=== PATIENT | male | born 1960 | race Native Hawaiian/Other Pacific Islander ===

== ENCOUNTER 2018-12-11 23:01 | Emergency (ER) | payer OTHER ==
[~2018-12-11] VITALS: Ht 188 cm; Wt 144.7 kg
[~2018-12-11 23:01] MED LIST: ASPIR 8181 MG PO; METFORMIN500 M1 PO; ZES10 PO; [UNRECOGNIZED DRUG - OTHER] PR
[2018-12-11 23:56] VITALS: BP 126/86
== END 2018-12-11 23:56 | disposition home or self-care (01) ==
LOC: ED 23:01
DX: M43.6 Torticollis (principal); M25.511 Pain in right shoulder; V49.49XA Driver injured in collision with other motor vehicles in traffic accident, initial encounter; W22.11XA Striking against or struck by driver side automobile airbag, initial encounter; Y93.I9 Activity, other involving external motion; Y92.413 State road as the place of occurrence of the external cause; Y99.8 Other external cause status